=== PATIENT | male | born 1985 | race Caucasian/White ===

== ENCOUNTER 2016-08-06 09:38 | Emergency (ER) | payer OTHER ==
[2016-08-06 10:30] LABS: MANUAL DIFF NEEDED? NO
[2016-08-06 10:45] LABS: BASO% 0.2 % (0.0-0.8); EOS# 0.15 X1000 (0.0-0.7); HEMATOCRIT 50.6 % (42.0-52.0); HEMOGLOBIN 16.8 g/dL (14.0-18.0); LYMPH# 1.41 X1000 (1.2-3.4); LYMPH% 9.2 % (20.5-51.1); MCH 29.4 PG (27-31); MCHC 33.2 g/dL (33-37); MCV 88.6 FL (81-99); MONO# 1.32 X1000 (0.11-0.59); MONO% 8.6 % (1.7-9.3); MPV 10.7 FL (7.4-10.4); PLT 323 X1000 (130-400); RBC 5.71 XMIL (4.7-6.1)
[2016-08-06 10:53] LABS: AGAP 11; ALBUMIN 5.1 g/dL (3.5-5.0); ALKALINE PHOSPHATASE 89 U/L (32-122); AMYLASE 70 U/L (20-200); BUN 13 mg/dL (8-22); CALCIUM 9.9 mg/dL (8.8-10.2); CHLORIDE 95 mmol/L (98-107); COSMO 266; GOT 23 U/L (10-34); GPT 28 U/L (10-44); LIPASE 27 U/L (13-60); SODIUM 133 mmol/L (136-145); TCO2 27 mmol/L (25-35); TOTAL BILIRUBIN 0.51 mg/dL (0.20-1.00); TOTAL PROTEIN 8.5 g/dL (6.3-8.3)
[2016-08-06 13:10] LABS: URINE CULTURE NEEDED? NO; URINE SOURCE CLEAN CATCH
[2016-08-06 13:29] LABS: BILIRUBIN URINE NEGATIVE (NEGATIVE); BLOOD URINE NEGATIVE (NEGATIVE); COLOR YELLOW; GLUCOSE URINE NEGATIVE (NEGATIVE); LEUKOCYTES URINE NEGATIVE (NEGATIVE); NITRITE URINE NEGATIVE (NEGATIVE); PROTEIN URINE 30 mg/dL (NEGATIVE); SP GRAVITY URINE 1.034; TURBIDITY URINE CLEAR (CLEAR); UROBILINOGEN URINE NORMAL (NORMAL)
[2016-08-06 13:32] LABS: URINE MICRO REVIEW NEEDED? YES
[2016-08-06 13:39] LABS: UR EPITHELIAL CELLS <10 /HPF (<10); URINE BACTERIA NEGATIVE /HPF; URINE RBC <10 /HPF (<10); URINE WBC <10 /HPF (<10)
[2016-08-06] MEDS ORDERED: NS 1,000 ML IV ONE (14:00)
[2016-08-06] MEDS ORDERED: ZOFRAN IV ONE (14:00)
[2016-08-06] MEDS ORDERED: BENTYL IM ONE (14:00)
[2016-08-06 14:06] LABS: URINE CRYSTALS CA OXALATE PRESENT
[2016-08-06] MEDS ORDERED: FLAGYL 500 MG/NS 100 ML IV ONE (14:53)
[2016-08-06 15:00] VITALS: BP 138/71
--- NOTE | 2016-08-06 15:01 | PROVIDER DOCUMENTATION ---
HPI-Abdominal Pain/GI Problem - General Chief Complaint: N/V/D Stated Complaint: N/V/D Time Seen by Provider: 08/06/16 13:56 Source: patient Allergies/Adverse Reactions: Patient Allergies Allergy/AdvReac Type Severity Reaction Status Date / Time No Known Allergies Allergy Verified 08/06/16 13:22 - History of Present Illness-ABD Nature of Presenting Problems: This pt presents today c complaints of n/v/d that began yesterday. He reports mild generalized abdominal pains that seem to be a little worse in the RLQ. He denies any fever. No dysuria or hematuria. No back pain. No other issues or complaints. Abdominal Pain Onset Location: reports: generalized abdomen Quality of Pain: reports: cramping Severity in ED: reports: mild Onset/Duration: reports: 24 hours ago Timing: reports: still present Modifying Factors: improves with: palpation, vomiting Associated Symptoms: reports: diarrhea, nausea, vomiting Last BM: this afternoon Dark Stools Present?: reports: none noticed Rectal Bleeding: reports: none Rectal Pain: reports: none Emesis Description: reports: clear Bruising or Bleeding Gums?: No Similar Symptoms Previously?: No Recently seen or treated by another doctor?: No Review of Systems - Adult - REVIEW OF SYSTEMS - ADULT Constitutional: reports: no symptoms reported. denies: chills, fever Eyes: reports: no symptoms reported. denies: discharge, dry eyes Ears, Nose, Mouth & Throat: reports: no symptoms reported. denies: ear discharge, ear pain Cardiovascular: reports: no symptoms reported. denies: chest pain, edema Respiratory: reports: no symptoms reported. denies: chronic cough, cough Gastrointestinal: reports: abdominal pain, diarrhea, nausea. denies: hematemesis, difficulty swallowing, frequent heartburn, rectal bleeding Genitourinary: reports: no symptoms reported. denies: dysuria, discharge Musculoskeletal: reports: no symptoms reported. denies: bone pain, back pain Integumentary: reports: no symptoms reported. denies: hives, hair loss Neurological: reports: no symptoms reported. denies: ataxia, dizziness/vertigo Psychiatric: reports: no symptoms reported. denies: anxiety, alcohol/drug dependence Endocrine: reports: no symptoms reported Hematologic/Lymphatic: reports: no symptoms reported Allergic/Immunologic: reports: no symptoms reported All Other Systems: Reviewed and Negative Past History - Adult - PAST MEDICAL HISTORY-ADULT Review of Records: reports: Old Records Reviewed, Nursing Assessment Review, Medications Reviewed, Social history reviewed & non-contributory. Major Childhood Illnesses: reports: denies history Cardiovascular: reports: denies history Respiratory: reports: denies history Gastrointestinal: reports: denies history Obstetrical/Gynecological: reports: denies history Genitourinary: reports: denies history Musculoskeletal: reports: chronic pain Neurological: reports: denies history Endocrine/Immune: reports: denies history Other Conditions: reports: denies history - IMMUNIZATION STATUS Childhood Immunizations: See Nurse Assessment Flu Vaccine: See Nurse Assessment Physical Exam-General - PHYSICAL EXAM-ADULT Initial Vital Signs Reviewed: Yes - CONSTITUTIONAL General Appearance: appears well, alert, no apparent distress. negative: lethargic, slow to respond - EYES Eyes: PERRL/EOMI, pink conjunctivae - HEAD, EARS, NOSE, MOUTH & THROAT HENMT: normocephalic/atraumatic, moist mucous membranes, normal ENT inspection - NECK Neck: non-tender, full range of motion, normal inspection - RESPIRATORY Respiratory: chest non-tender, lungs clear, normal breath sounds, no pleuratic chest pain, no respiratory distress, no accessory muscle use. negative: respiratory distress, decreased breath sounds, accessory muscle use - CARDIOVASCULAR Cardiovascular: normal peripheral pulses, regular rate, rhythm, no edema. negative: bradycardia, tachycardia - GASTROINTESTINAL (ABDOMEN) Abdominal Exam: normal bowel sounds, soft, no organomegaly, no pulsatile mass, tenderness (generalized), McBurney's point tenderness. negative: abdominal bruit, abnormal bowel sounds, distended, guarding, rigid, rebound, hernia, mass , Gay's sign, psoas - LYMPHATIC Lymphatic: no adenopathy - MUSCULOSKELETAL Back Exam: normal inspection, no CVA tenderness, no vertebral tenderness Extremity: normal range of motion, non-tender, normal gait - SKIN Integumentary: normal color, normal turgor, warm/dry - NEUROLOGIC Neurologic: grossly normal, no motor/sensory deficits - PSYCHIATRIC Psych/Mental Status: normal mood/affect, normal thought content, normal thought process, oriented x 3 Progress - PLAN OF CARE/RESULTS Progress/Plan/Lab Results: Laboratory Tests 08/06/16 08/06/16 08/06/16 10:19 10:19 12:08 WBC 15.36 H RBC 5.71 Hgb 16.8 Hct 50.6 MCV 88.6 MCH 29.4 MCHC 33.2 RDW Std Deviation 14.1 Plt Count 323 MPV 10.7 H Neut % (Auto) 81.0 H Lymph % (Auto) 9.2 L [place] % (Auto) 8.6 Eos % (Auto) 1.0 Baso % (Auto) 0.2 Neut # (Auto) 12.45 H Lymph # (Auto) 1.41 [place] # (Auto) 1.32 H Eos # (Auto) 0.15 Baso # (Auto) 0.03 Sodium 133 L Potassium 4.0 Chloride 95 L Carbon Dioxide 27 Anion Gap 11 BUN 13 Creatinine 1.2 Estimated GFR/1.73 m2 > 60 BUN/Creatinine Ratio 11 Glucose 98 Calculated Osmolality 266 Calcium 9.9 Total Bilirubin 0.51 AST 23 ALT 28 Alkaline Phosphatase 89 Total Protein 8.5 H Albumin 5.1 H Globulin 3.4 Albumin/Globulin Ratio 1.5 Amylase 70 Lipase 27 Urine Source CLEAN CATCH Urine Color YELLOW Urine Turbidity CLEAR Urine pH 6.0 Ur Specific [place] 1.034 Urine Protein 30 A Ur Glucose (Stick) NEGATIVE Ur Ketones (Stick) NEGATIVE Urine Blood NEGATIVE Urine Nitrite NEGATIVE Urine Bilirubin NEGATIVE Urobilinogen Dipstick NORMAL Urine Leukocytes NEGATIVE Urine WBC (Auto) <10 Urine RBC (Auto) <10 U Epithel Cells (Auto) <10 Urine Bacteria (Auto) NEGATIVE Urine Crystals CA OXALATE PRESENT Small Round Cells Not Reportable Urine Casts Not Reportable Urine Yeast-like Cells Not Reportable Orders Category Date Time Status Saline Loc DIRECTED Care 08/06/16 10:10 Active NPO Diet 08/06/16 10:[address] ABD/PELVIS W/ IV CONT ONLY [CT] Stat Exams 08/06/16 14:35 Completed AMYLASE [CHEM] Stat Lab 08/06/16 10:19 Completed CBC WITH ELECTRONIC DIFF [HEME] Stat Lab 08/06/16 10:19 Completed COMPREHENSIVE METABOLIC PANEL [CHEM] Stat Lab 08/06/16 10:19 Completed LIPASE [CHEM] Stat Lab 08/06/16 10:19 Completed URINALYSIS W/POSS RFLX CULT [URINALYSIS] Stat Lab 08/06/16 12:08 Completed URINE MANUAL MICROSCOPIC [URINALYSIS] Stat Lab 08/06/16 12:08 Completed 0.9% Sodium Chloride Inj [Ns] 1,000 ml Med 08/06/16 14:00 Active IV 999 mls/hr Dicyclomine [Bentyl] Med 08/06/16 14:00 Discontinued 20 mg IM NOW ONE Metronidazole 500 mg/Ns [Flagyl 500 mg/Ns] 100 ml Med 08/06/16 14:53 Active IV NOW Ondansetron [Zofran] Med 08/06/16 14:00 Discontinued 4 mg IV NOW ONE Vital Signs Temp Pulse Resp BP Pulse Ox 08/06/16 14:58 88 18 138/71 100 08/06/16 10:08 98.1 F 85 16 118/68 97 No Known Allergies Allergy (Verified 08/06/16 13:22) No Home Medications 08/06/16 Dietary Diet NPO Start FriAug 06 1010 Laboratory 08/06/16 08/06/16 08/06/16 12:08 10:19 10:19 WBC 15.36 H RBC 5.71 Hgb 16.8 Hct 50.6 MCV 88.6 MCH 29.4 MCHC 33.2 RDW Std Deviation 14.1 Plt Count 323 MPV 10.7 H Neut % (Auto) 81.0 H Lymph % (Auto) 9.2 L [place] % (Auto) 8.6 Eos % (Auto) 1.0 Baso % (Auto) 0.2 Neut # (Auto) 12.45 H Lymph # (Auto) 1.41 [place] # (Auto) 1.32 H Eos # (Auto) 0.15 Baso # (Auto) 0.03 Sodium 133 L Potassium 4.0 Chloride 95 L Carbon Dioxide 27 Anion Gap 11 BUN 13 Creatinine 1.2 Estimated GFR/1.73 m2 > 60 BUN/Creatinine Ratio 11 Glucose 98 Calculated Osmolality 266 Calcium 9.9 Total Bilirubin 0.51 AST 23 ALT 28 Alkaline Phosphatase 89 Total Protein 8.5 H Albumin 5.1 H Globulin 3.4 Albumin/Globulin Ratio 1.5 Amylase 70 Lipase 27 Urine Source CLEAN CATCH Urine Color YELLOW Urine Turbidity CLEAR Urine pH 6.0 Ur Specific [place] 1.034 Urine Protein 30 A Ur Glucose (Stick) NEGATIVE Ur Ketones (Stick) NEGATIVE Urine Blood NEGATIVE Urine Nitrite NEGATIVE Urine Bilirubin NEGATIVE Urobilinogen Dipstick NORMAL Urine Leukocytes NEGATIVE Urine WBC (Auto) <10 Urine RBC (Auto) <10 U Epithel Cells (Auto) <10 Urine Bacteria (Auto) NEGATIVE Urine Crystals CA OXALATE PRESENT Small Round Cells Not Reportable Urine Casts Not Reportable Urine Yeast-like Cells Not Reportable Will attempt to tx as an outpt. Pt in agreement. - CT/MRI 1 CT Study: Abdomen, Pelvis CT Results: enterocolitis; normal appendix Departure - Departure Time of Disposition Order: 15:02 DIAGNOSIS: Enterocolitis Disposition: HOME 01 Certified Medical Emergency: Emergent Condition: Good Additional Instructions: Take medication as prescribed. Eat a bland diet and stay well hydrated. Follow up with your primary care provider or community health specialist. ED Follow Up Instructions: You have been treated by a care provider in the Emergency Department. These instructions are being provided to you so you can have an understanding of how to care for yourself upon discharge. Upon discharge from the Emergency Department, you are responsible for making arrangements for follow-up care by a physician of your choice. Take all prescribed medications as directed. Return to the Emergency Department immediately for any new or worsening symptoms. You may call the Physician Referral phone number at [phone] to obtain a list of Physicians who are taking new patients. Prescriptions: Dicyclomine [Bentyl] 10 mg PO AC + HS #10 capsule Metronidazole [Flagyl] 500 mg PO BID #14 tablet Promethazine [Phenergan] 25 mg PO Q6H PRN PRN #20 tablet PRN Reason: Nausea Referrals: None,PCP [Primary Care Provider] - Graham Lucas MD [STAFF PHYSICIAN] - Attestation - Physician/ Mid-level Attestation Patient care was provided by Mid-level provider (PIG MACHINE OPERATOR/PA):: Yes Mid-level provider:: Juan Carlos Nelson Mid-level documentation review:: The Mid-level provider documentation, treatment plan and medical decision making was reviewed by the physician who agrees with all treatment and medical decision making by the MLP.
--- NOTE | 2016-08-06 15:10 | Diag Imaging Result Document ---
PROCEDURE NAME: CT ABD/PELVIS W/ IV CONT ONLY - 08/06/2016 CT OF THE ABDOMEN WITH INTRAVENOUS CONTRAST: FINDINGS: The spleen, adrenal glands, and pancreas are within normal limits. The liver is unremarkable in appearance. The appendix is not distended. There is fluid throughout the ascending colon. The small bowel is not distended. There is no evidence of significant adenopathy. The kidneys are without evidence of hydronephrosis or mass. There is a cyst in the left kidney lower pole. This has not changed since 09/13/2014. CT OF THE PELVIS WITH INTRAVENOUS CONTRAST: FINDINGS: There is no evidence of free fluid. There is no evidence of adenopathy or masses. The regional skeleton appears to be stable. IMPRESSION: The possibility of enterocolitis cannot be excluded. Otherwise, no evidence of acute disease.
== END 2016-08-06 16:20 | disposition home or self-care (01) ==
LOC: ED 09:38
DX: K52.9 Noninfective gastroenteritis and colitis, unspecified (principal); R11.2 Nausea with vomiting, unspecified; R19.7 Diarrhea, unspecified; R10.84 Generalized abdominal pain; R10.32 Left lower quadrant pain; R10.817 Generalized abdominal tenderness; G89.29 Other chronic pain
CPT/HCPCS: 74177; 80053; 81001; 82150; 83690; 85025; 96365; 96372; J0500; J2405; J7030; Q9967; S0030